=== PATIENT | female | born 1990 | race Caucasian/White ===

== ENCOUNTER 2016-08-22 09:17 | Emergency (ER) | payer SELFPAY ==
[~2016-08-22] VITALS: Ht 157.5 cm; Wt 55.0 kg
[2016-08-22 09:19] VITALS: BP 135/63; PULSE 72; RESP 15; TEMP 98.2; O2SAT 99
[2016-08-22 10:28] VITALS: BP 121/76; PULSE 71; RESP 12; TEMP 98.2; O2SAT 99
--- NOTE | 2016-08-22 11:17 | PD ---
HPI Chief Complaint: Complaint Time Seen by Provider: 10:39 Travel History International Travel<30 days: No Contact w/Intl Traveler<30days: No Traveled to known affect area: No History of Present Illness HPI This is a 26-year-old female who presents to the emergency department with vaginal discharge is been going on for 3 days, constant, moderate severity associated with itching and burning when she urinates. She is Japanese speaking only and history is obtained via biomedical field service engineer. She says she used a Monistat suppository prior to arrival but then had a lot of discharge and became concerned. She is having a little bit of lower abdominal pain with no fevers or chills. She denies any vomiting. She's had 2 sexual partners in the last 6 months. PFSH Past Medical History ?: Not Social History Alcohol Use: No Tobacco Use: No Substance Use: No Allergies-Medications (Allergen,Severity, Reaction): Coded Allergies: Aspirin (Verified Allergy, Intermediate, 08/22/16) Reported Meds & Prescriptions Reported Meds & Active Scripts Active No Active Prescriptions or Reported Medications Review of Systems Except as stated in HPI: all other systems reviewed are Neg Physical Exam Narrative GENERAL:Well appearing, no acute distress SKIN: Focused skin assessment warm and dry. HEAD: Atraumatic. Normocephalic. EYES: Pupils equal and round. No injection or drainage. ENT: Moist mucous membranes NECK: Trachea midline. CARDIOVASCULAR: Regular rate and rhythm. No murmur appreciated. RESPIRATORY: Clear to auscultation. Breath sounds equal bilaterally. GASTROINTESTINAL: Abdomen soft, mildly tender to palpation in the suprapubic region with no rebound or guarding. OIL EXPLORATION ENGINEER: White cheesy discharge in the vaginal vault with no cervical motion tenderness or adnexal tenderness. MUSCULOSKELETAL: No obvious deformities. NEUROLOGICAL: Awake and alert. No obvious cranial nerve deficits. Moving all extremities. PSYCHIATRIC: Appropriate mood and affect; insight and judgment normal. Data Data Last Documented VS Vital Signs Date Time Temp Pulse Resp B/P Pulse Ox O2 Delivery O2 Flow Rate FiO2 08/22/16 10:28 98.2 71 12 121/76 99 Room Air Orders Wet Prep Profile (08/22/16 11:14) Gc And Chlamydia Pcr (08/22/16 11:14) Urinalysis - C+S If Indicated (08/22/16 11:39) Urine Culture (08/22/16 11:10) Labs Laboratory Tests Test 08/22/16 08/22/16 11:10 11:15 Urine Color LIGHT-YELLOW Urine Turbidity CLEAR Urine pH 7.0 Urine Specific [place] 1.005 Urine Protein NEG mg/dL Urine Glucose (UA) NEG mg/dL Urine Ketones NEG mg/dL Urine Occult Blood MOD Urine Nitrite NEG Urine Bilirubin NEG Urine Urobilinogen LESS THAN 2.0 MG/DL Urine Leukocyte Esterase LARGE Urine RBC LESS THAN 1 /hpf Urine WBC 22 /hpf Urine WBC Clumps RARE Urine Squamous Epithelial 4 /hpf Cells Urine Transitional Epithelial 1 /hpf Cells Urine Renal Epithelial Cells <1 /hpf Urine Bacteria RARE /hpf Microscopic Urinalysis Comment CULTURE INDICATED Clue Cells (Wet Prep) NONE SEEN Vaginal Trichomonas (Wet Prep) NONE SEEN Vaginal Yeast (Wet Prep) PRESENT MDM Medical Decision Making Medical Screen Exam Complete: Yes Emergency Medical Condition: Yes Interpretation(s) Afebrile, no tachycardia, normotensive Urinalysis consistent with urinary tract infection Wet prep demonstrates yeast Differential Diagnosis Yeast infection, cervicitis, PID, urinary tract infection, Narrative Course This is a 26-year-old female who presents the emergency department with dysuria , vaginal discharge and some lower abdominal discomfort. She has evidence of both a urinary tract infection and a yeast infection. She'll be treated with fluconazole here and discharged on antibiotic for her UTI. She is nontoxic appearing and appropriate for outpatient therapy. Diagnosis Primary Impression: Urinary tract infection Qualified Code: N30.00 - Acute cystitis without hematuria Additional Impression: Yeast infection Patient Instructions: General Instructions Additional Instructions: If you develop fever, persistent vomiting, back pain, or inability to eat return to the emergency department as your urine infection may have progressed to a kidney infection. Complete your antibiotics as prescribed. Stay well hydrated with Gatorade or water. Followup with your primary care physician in 2-3 days if your symptoms have not resolved. Med/Other Pt SpecificInfo: Prescription(s) given Scripts Nitrofurantoin Monohydrate Macrocrystals (Macrobid)100 Mg [id number] Mg PO BID 7 Days Ref 0 Prov:Linda Cruz MD 08/22/16 Disposition: 01 DISCHARGE HOME Condition: Stable Linda Cruz MD Aug 22, 2016 11:17
[2016-08-22 12:23] LABS: BACTERIA, URINE RARE /hpf; BLOOD, URINE MOD (NEG); COMMENT (UR) CULTURE INDICATED; CULTURE IF INDICATED CULTURE INDICATED; GLUCOSE,URINE NEG (NEG); KETONE, URINE NEG (NEG); NITRITE,URINE NEG (NEG); RENAL EPITHELIAL CELLS <1 /hpf; SQUAMOUS EPITHELIAL CELL URINE 4 /hpf (0-5); TRANSITIONAL EPI CELLS, URINE 1 /hpf; URINE COLOR LIGHT-YELLOW (YELLW/STRAW)
[2016-08-22] MEDS ORDERED: MACR100C2 PO (12:34)
[2016-08-22] MEDS ORDERED: FLUCONAZOLE 100 MG TAB PO ONE (12:45)
[2016-08-22 16:12] LABS: CHLAMYDIA PCR NOT DETECTED (NOT DETECT); NEISSERIA PCR NOT DETECTED (NOT DETECT)
== END 2016-08-22 12:46 | disposition home or self-care (01) ==
LOC: NEPD 09:17
DX: N30.00 Acute cystitis without hematuria (principal); B37.3 Candidiasis of vulva and vagina; B96.1 Klebsiella pneumoniae [K. pneumoniae] as the cause of diseases classified elsewhere
CPT/HCPCS: 81001; 87077; 87086; 87186; 87210; 87491; 87591; 99283